=== PATIENT | male | born 1955 | race Caucasian/White ===

== ENCOUNTER 2023-02-20 17:14 | Outpatient (REF) | payer SELFPAY ==
[2023-02-20 21:15] LABS: HCT 48.1 % (40.0-50.0); HGB 16.1 g/dL (13.5-17.5); MCH 29.8 pg (27.0-33.0); MCHC 33.5 % (32.0-36.0); MCV 89 fL (80-95); MPV 9.7 fL (8.0-11.0); Platelet Count 290 10^3/uL (130-400); RBC 5.41 10^6/uL (4.36-5.78); RDW 13.7 % (11.8-14.1); WBC 13.81 10^3/uL (4.4-10.8)
[2023-02-20 21:35] LABS: ALT 28 U/L (16-63); AST 37 U/L (15-37); Albumin 3.7 g/dL (3.4-5.0); Alkaline Phosphatase 106 U/L (46-116); Anion Gap 9.6 mmol/L (3-11); BUN 32 mg/dL (7-18); Bilirubin, Total 2.4 mg/dL (0.2-1.0); CO2 30.4 mmol/L (21.0-32.0); CREATININE 1.1 mg/dL (0.70-1.30); Calcium 9.1 mg/dL (8.5-10.1); Chloride 102 mmol/L (98-107); Estimated GFR 72.67 (mL/min/1.73m2); Glucose 121 mg/dL (74-106); Potassium 4.1 mmol/L (3.5-5.1); Sodium 142 mmol/L (136-145); Total Protein 8.9 g/dL (6.4-8.2)
[2023-02-23 10:49] LABS: Hepatitis C Ab w Rflx HCV PCR Negative (Negative)
[2023-02-23 11:02] LABS: HIV-1/2 Ag & Ab Screen Negative (Negative)
== END 2023-02-20 17:15 | disposition home or self-care (01) ==
LOC: NCHCN 17:14
PROVIDERS: Visit Provider Registered Nurse
DX: K21.9 Gastro-esophageal reflux disease without esophagitis (principal); R03.0 Elevated blood-pressure reading, without diagnosis of hypertension; Z86.19 Personal history of other infectious and parasitic diseases; Z11.4 Encounter for screening for human immunodeficiency virus [HIV]; R79.89 Other specified abnormal findings of blood chemistry
CPT/HCPCS: 80053; 85027; 86803; 87389; 84443

== ENCOUNTER 2023-02-25 16:56 | Outpatient (REF) | payer SELFPAY ==
[2023-02-25 21:37] LABS: Abs Immature Grans 0.05 10^3/uL (0.0-0.06); Absolute Basophil Count 0.04 10^3/uL (0.0-0.2); Absolute Eosinophil Count 0.04 10^3/uL (0.0-0.7); Absolute Lymphocyte Count 0.97 10^3/uL (1.2-3.4); Absolute Monocyte Count 0.88 10^3/uL (0.1-0.8); Basophils % 0.3; Eosinophils % 0.3; HCT 49.2 % (40.0-50.0); HGB 15.9 g/dL (13.5-17.5); Immature Grans % 0.4; Lymphocytes % 8.3; MCHC 32.3 % (32.0-36.0); MCV 90 fL (80-95); MPV 10.1 fL (8.0-11.0); Monocytes % 7.5; Neutrophils % 83.2; Platelet Count 337 10^3/uL (130-400); RBC 5.48 10^6/uL (4.36-5.78); RDW 13.5 % (11.8-14.1); RDW-SD 44.7 fL; WBC 11.74 10^3/uL (4.4-10.8)
[2023-02-25 21:39] LABS: Absolute Neutrophil Count 9.77 10^3/uL (1.2-6.7)
[2023-02-25 21:52] LABS: ALT 24 U/L (16-63); AST 24 U/L (15-37); Albumin 3.1 g/dL (3.4-5.0); Alkaline Phosphatase 100 U/L (46-116); Anion Gap 10.3 mmol/L (3-11); BUN 24 mg/dL (7-18); Bilirubin, Total 0.9 mg/dL (0.2-1.0); CO2 28.7 mmol/L (21.0-32.0); Calcium 9.4 mg/dL (8.5-10.1); Chloride 102 mmol/L (98-107); Estimated GFR 81.47 (mL/min/1.73m2); Glucose 95 mg/dL (74-106); Potassium 4.1 mmol/L (3.5-5.1); Sodium 141 mmol/L (136-145); Total Protein 7.6 g/dL (6.4-8.2)
[2023-02-25 21:56] LABS: Hemoglobin A1C 5.7 % (<5.7)
[2023-02-27 10:14] LABS: HBs Antibody, Quant <3.1 mIU/mL (See Note); Hepatitis B Surface Ab Negative (See Note)
[2023-02-27 10:28] LABS: Hepatitis B Surface Ag Negative (Negative)
[2023-02-27 10:47] LABS: Hep B Core Antibody Negative (Negative)
== END 2023-02-25 16:57 | disposition home or self-care (01) ==
LOC: NCHCN 16:56
PROVIDERS: Visit Provider Registered Nurse
DX: Z13.1 Encounter for screening for diabetes mellitus (principal); R17 Unspecified jaundice; R13.10 Dysphagia, unspecified
CPT/HCPCS: 80053; 86704; 86706; 87340; 83036; 85025